=== PATIENT | male | born 1940 | race Caucasian/White ===

== ENCOUNTER 2016-11-17 10:02 | Outpatient (CLI) | payer MEDICARE, OTHER ==
[2016-11-17 11:18] LABS: BASOPHILS % (AUTO) 0.7 %; EOSINOPHILS # (AUTO) 0.1 10^3/uL (0.0-0.7); EOSINOPHILS % (AUTO) 2.3 %; HCT - HEMATOCRIT 42.8 % (42.0-52.0); HEMOGLOBIN A1C 0.48 g/dL; HGB - HEMOGLOBIN 14.9 g/dL (14.0-18.0); LYMPHOCYTES # (AUTO) 1.4 10^3/uL (1.5-3.5); LYMPHOCYTES % (AUTO) 34.2 %; MEAN CORPUSCULAR HEMOGLOBIN 32.2 pg (27.0-31.0); MEAN CORPUSCULAR HGB CONC 34.7 g/dL (32.0-36.0); MEAN CORPUSCULAR VOLUME 92.7 fL (80.0-94.0); MEAN PLATELET VOLUME 8.3 fL (7.4-11.4); MONOCYTES # (AUTO) 0.4 10^3/uL (0.0-1.0); MONOCYTES % (AUTO) 9.1 %; NEUTROPHILS # (AUTO) 2.2 10^3/uL (1.5-6.6); NEUTROPHILS % (AUTO) 53.7 %; RED BLOOD COUNT 4.61 10^6/uL (4.70-6.10); RED CELL DISTRIBUTION WIDTH 12.8 % (12.0-15.0); UNCORRECTED WHITE BLOOD COUNT 4.1 x10^3/uL; WHITE BLOOD COUNT 4.1 x10^3/uL (4.8-10.8)
== END 2016-11-17 10:03 | disposition home or self-care (01) ==
LOC: LAB 10:02
PROVIDERS: ATTEND Internal Medicine
DX: I10 Essential (primary) hypertension (principal); R73.09 Other abnormal glucose; I47.1 Supraventricular tachycardia
CPT/HCPCS: 36415; 80053; 83036; 85025

== ENCOUNTER 2016-12-05 10:07 | Outpatient (CLI) | payer MEDICARE, OTHER ==
[2016-12-05 10:53] LABS: CREATININE 1.2 mg/dL (0.6-1.2)
[2016-12-05] MEDS ORDERED: IOPAMIDOL-300 100 ML VIAL IVP ONE (11:15)
--- NOTE | 2016-12-05 14:52 | CT Report ---
CT CHEST WITH CONTRAST: 12/05/2016 CLINICAL INDICATION: Thoracic aortic aneurysm. TECHNIQUE: Axial CT images of the chest were obtained with 100 mL Isovue-300. COMPARISON: Previous chest CT without contrast 05/31/2014. FINDINGS: Postoperative changes are noted at the gastroesophageal junction and aortic valve. There is no evidence of thoracic aortic aneurysm. The thoracic aorta at the sinus of Valsalva measures 4.0 x 4.0 cm, the sinotubular junction measures 3.9 x 4.1 cm, the ascending aorta at the level of the ma in pulmonary artery measures 4.0 x 4.0 cm. The aortic arch just distal to the takeoff of the left anderson bclavian artery measures 2.7 x 2.7 cm, and the descending thoracic aorta at the level of the main pul monary artery measures 2.8 x 2.8 cm. No hilar or mediastinal lymphadenopathy is present. There is a nodule in the right middle lobe, now measuring 6 x 4 mm (previously 6 x 4 mm). Minimal linear atele ctasis or scarring is present at the bases. No effusion or pneumothorax is present. Osseous structu res demonstrate degenerative changes and changes of previous surgery. Limited evaluation of upper ab dominal structures demonstrates multiple hepatic hypodensities, likely representing cysts, and a larg e cyst in the upper pole of the right kidney. The adrenal glands appear unremarkable. IMPRESSION: NO EVIDENCE OF THORACIC AORTIC ANEURYSM. MEASUREMENTS ABOVE. POSTOPERATIVE CHANGES. In accordance with CT protocol optimization, one or more of the following dose reduction techniques w ere utilized for this exam: automated exposure control, adjustment of mA and/or KV based on patient size, or use of iterative reconstructive technique. JOB #: [id number] EXT JOB #:[id number]
== END 2016-12-05 10:08 | disposition home or self-care (01) ==
LOC: DI 10:07
PROVIDERS: ATTEND Internal Medicine
DX: I71.2 Thoracic aortic aneurysm, without rupture (principal)
CPT/HCPCS: 36415; 71260; 82565; Q9967

== ENCOUNTER 2017-03-07 07:57 | Day surgery (SDC) | payer MEDICARE, OTHER ==
[2017-03-07] MEDS ORDERED: AMPICILLIN 2 GM in SODIUM CHLORIDE 0.9% MINIBAG 100 ML IV ONE (08:00)
[2017-03-07] MEDS ORDERED: LACTATED RINGERS 1,000 ML IV ONE (08:08)
[2017-03-07] MEDS ORDERED: MIDAZOLAM 2 MG/2 ML VIAL IVP ONE (09:26)
[2017-03-07] MEDS ORDERED: fentaNYL 100 MCG/2 ML VIAL IVP ONE (09:26)
--- NOTE | 2017-03-07 10:47 | PROCEDURE REPORT ---
DATE OF PROCEDURE: 03/07/2017 00:00:00 PROCEDURES PERFORMED 1. Esophagogastroduodenoscopy. 2. Colonoscopy. ENDOSCOPIST: Rakel Lucia MD. PRIMARY CARE: Ej Galindo MD. 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 PREMEDICATIONS: Fentanyl 100 mcg, Versed 9 mg IV titration, ampicillin 2 grams IV piggyback. After informed consent was obtained, the patient was placed in the left lateral decubitus position. T he video upper scope was placed into the oropharynx and with the patient's help swallowed into the es ophagus. The esophagus, stomach, and duodenum were carefully examined. On withdrawal, retroflexed vie w of the GE junction was performed. The scope was removed. The patient tolerated the procedure well. The patient was then turned, the colonoscope was substituted, and this was passed to the cecum. On sl ow withdrawal, mucosa was carefully examined. The scope was removed. The patient tolerated the proced ure well. BLOOD LOSS: None. COMPLICATIONS: None. FINDINGS EGD 1. Grade C esophagitis with at least 3 areas of ulceration, one of which was linear and over a centim eter long. 2. 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 Biopsies taken x3. 3. Repaired hiatal hernia with no recurrence. 4. Otherwise negative stomach. 5. Negative duodenal bulb and sweep. Colonoscopy 1. A 6 mm cecal polyp, jumbo biopsied x2 and removed. 2. Otherwise negative colonoscopy to cecum. We will merely await biopsies on the patient. I do not think he will probably need either colonoscopy or upper endoscopy again. He has tried to cut back on his omeprazole and still has some symptoms and he also has clear cut esophagitis. We will discuss perhaps increasing his medications back again. JOB #: [id number] EXT JOB #:[id number]
[2017-03-07 11:02] VITALS: BP 118/68
== END 2017-03-07 07:58 | disposition home or self-care (01) ==
LOC: SDS 07:57
PROVIDERS: ATTEND Internal Medicine Gastroenterology
PROC: 0DB58ZX Excision of Esophagus, Via Natural or Artificial Opening Endoscopic, Diagnostic (ICD-10-PCS; principal; 2017-03-07 09:00)
PROC: 0DBH8ZX Excision of Cecum, Via Natural or Artificial Opening Endoscopic, Diagnostic (ICD-10-PCS; 2017-03-07 09:00)
DX: Z12.11 Encounter for screening for malignant neoplasm of colon (principal); K22.10 Ulcer of esophagus without bleeding; K22.70 Barrett's esophagus without dysplasia; K44.9 Diaphragmatic hernia without obstruction or gangrene; D12.0 Benign neoplasm of cecum; I48.92 Unspecified atrial flutter; I48.91 Unspecified atrial fibrillation; Z79.82 Long term (current) use of aspirin
CPT/HCPCS: 43239; 45380; 88305; J7120

== ENCOUNTER 2017-03-22 10:00 | Outpatient (CLI) | payer MEDICARE, OTHER | END 2017-03-22 10:01 | disposition home or self-care (01) | LOC: LAB.R 10:00 | PROVIDERS: ATTEND Internal Medicine | DX: Z71.89 Other specified counseling (principal) | CPT/HCPCS: 86708 ==

== ENCOUNTER 2017-04-22 10:53 | Emergency (ER) | payer MEDICARE, OTHER ==
[2017-04-22 11:12] LABS: BASOPHILS % (AUTO) 0.8 %; EOSINOPHILS # (AUTO) 0.1 10^3/uL (0.0-0.7); EOSINOPHILS % (AUTO) 1.1 %; HCT - HEMATOCRIT 44.3 % (42.0-52.0); HGB - HEMOGLOBIN 15.2 g/dL (14.0-18.0); LYMPHOCYTES # (AUTO) 1.5 10^3/uL (1.5-3.5); LYMPHOCYTES % (AUTO) 25.8 %; MEAN CORPUSCULAR HEMOGLOBIN 31.6 pg (27.0-31.0); MEAN CORPUSCULAR HGB CONC 34.4 g/dL (32.0-36.0); MEAN PLATELET VOLUME 7.7 fL (7.4-11.4); MONOCYTES # (AUTO) 0.6 10^3/uL (0.0-1.0); MONOCYTES % (AUTO) 10.3 %; NEUTROPHILS # (AUTO) 3.7 10^3/uL (1.5-6.6); RED BLOOD COUNT 4.82 10^6/uL (4.70-6.10); RED CELL DISTRIBUTION WIDTH 12.9 % (12.0-15.0); UNCORRECTED WHITE BLOOD COUNT 5.9 x10^3/uL; WHITE BLOOD COUNT 5.9 x10^3/uL (4.8-10.8)
[2017-04-22 11:24] LABS: ALBUMIN/GLOBULIN RATIO 1.3 (1.0-2.2); BILIRUBIN,TOTAL 0.7 mg/dL (0.2-1.0); CALCIUM 9.1 mg/dL (8.5-10.3); CREATININE 1.3 mg/dL (0.6-1.2); POTASSIUM 4.2 mmol/L (3.5-5.0); TOTAL PROTEIN 6.8 g/dL (6.7-8.2)
--- NOTE | 2017-04-22 11:32 | ED Physician Documentation ---
PD HPI CHEST PAIN - Stated complaint Stated Complaint: CHEST TIGHTNESS,FLUSHED - Chief complaint Chief Complaint: Cardiac - History obtained from History obtained from: Patient - History of Present Illness Timing - onset: How many hours ago (1), Today Timing - onset during: Rest (sitting in [employer], noted onset chest pressure with flush feeling and some nausea/dyspnea. This persisted until just before arrival to ED. Feeling normal at time of my exam. No prior similar episodes.) Timing - duration: Hours (1) Timing - details: Abrupt onset, Now resolved Quality: Pressure, Tightness Location: Substernal, Left chest Radiation: Neck, Left upper extremity, Right upper extremity Improved by: No: Rest Worsened by: No: Inspiration, Movement, Palpation Associated symptoms: Shortness of air, Nausea. No: Palpitations, Cough Similar symptoms before: Has not had sx before Recently seen: Clinic (had Hep A vaccine a week ago in preparation of trip to [facility] in 3 weeks.) Review of Systems Constitutional: denies: Fever, Chills Nose: denies: Rhinorrhea / runny nose, Congestion Throat: denies: Sore throat Cardiac: denies: Palpitations, Pedal edema, Calf pain Respiratory: denies: Dyspnea, Cough, Wheezing GI: denies: Abdominal Pain, Vomiting, Diarrhea : denies: Dysuria, Frequency Skin: denies: Rash, Lesions Neurologic: denies: Focal weakness, Numbness, Near syncope, Syncope Psychiatric: denies: Insomnia Endocrine: denies: Weight loss Immunocompromised: denies: Immunocompromised PD PAST MEDICAL HISTORY - Past Medical History Past Medical History: Yes Cardiovascular: Atrial flutter, Atrial fibrillation, Valve disorder, Other Respiratory: None Endocrine/Autoimmune: None GI: GERD, Ulcers, Pancreatitis, Other : Other HEENT: None Psych: None Musculoskeletal: None Derm: Other - Past Surgical History Past Surgical History: Yes General: Cholecystectomy, Colonoscopy, EGD, Other Cardiovascular: Valve replacement HEENT: Cataracts - Present Medications Home Medications: Ambulatory Orders Medication Instructions Recorded Confirmed Aspirin Chewable [St Christoph 81 mg PO DAILY 10/30/13 04/22/17 Aspirin] Metoprolol Succinate [Toprol Xl] 25 mg PO DAILY 10/30/13 04/22/17 Omeprazole 20 mg PO DAILY 10/30/13 04/22/17 Sumatriptan [Imitrex] 50 mg PO ONCE PRN 10/30/13 04/22/17 Butalbital/Aspirin/Caffeine 1 each PO ONCE 07/13/14 04/22/17 [Fiorinal 50-325-40 mg Capsule] - Allergies Allergies/Adverse Reactions: Allergies Allergy/AdvReac Type Severity Reaction Status Date / Time iobenguane iodine-131 AdvReac Mild Itching Verified 07/13/14 14:41 - Social History Does the pt smoke?: No Smoking Status: Never smoker Does the pt drink ETOH?: Yes Does the pt have substance abuse?: No - Immunizations Immunizations are current?: Yes PD ED PE NORMAL - Vitals Vital signs reviewed: Yes - General General: Alert and oriented X 3, No acute distress, Well developed/nourished - HEENT HEENT: Pharynx benign - Neck Neck: Supple, no meningeal sign, No adenopathy - Cardiac Cardiac: RRR, No murmur - Respiratory Respiratory: Clear bilaterally - Abdomen Abdomen: Soft, Non tender - Back Back: No CVA TTP - Derm Derm: Normal color, Warm and dry - Extremities Extremities: No deformity, No tenderness to palpate, Normal ROM s pain, No edema , No calf tenderness / cord - Neuro Neuro: Alert and oriented X 3, No motor deficit, Normal speech - Psych Psych: Normal mood, Normal affect Results - Vitals Vitals: Vital Signs - 24 hr 04/22/17 04/22/17 04/22/17 10:57 11:50 12:53 Temperature 36.3 C L 36.2 C L 36.9 C Heart Rate 64 59 L 56 L Respiratory 18 16 16 Rate Blood Pressure 191/97 H 138/82 H 124/78 O2 Saturation 99 97 98 04/22/17 14:16 Temperature 36.5 C Heart Rate 55 L Respiratory 18 Rate Blood Pressure 121/73 O2 Saturation 95 Oxygen O2 Source Room air - EKG (time done) 10:58 Rhythm: NSR (64) Intervals: RBBB QRS: Normal Ischemia: Normal ST segments. No: ST elevation c/w ischemia, ST depression - Labs Labs: Laboratory Tests 04/22/17 04/22/17 04/22/17 11:04 11:06 11:06 WBC 5.9 RBC 4.82 Hgb 15.2 Hct 44.3 MCV 92.0 MCH 31.6 H MCHC 34.4 RDW 12.9 Plt Count 138 MPV 7.7 Neut # 3.7 Lymph # 1.5 Luce # 0.6 Eos # 0.1 Baso # 0.0 Absolute Nucleated RBC 0.00 Nucleated RBC % 0.0 Sodium 137 Potassium 4.2 Chloride 106 Carbon Dioxide 25 Anion Gap 6.0 BUN 22 H Creatinine 1.3 H Estimated GFR (MDRD) 54 L Glucose 81 POC Whole Bld Glucose 83 Calcium 9.1 Total Bilirubin 0.7 AST 18 ALT 14 Alkaline Phosphatase 46 Troponin I Total Protein 6.8 Albumin 3.8 Globulin 3.0 Albumin/Globulin Ratio 1.3 Lipase 24 04/22/17 04/22/17 11:06 13:47 WBC RBC Hgb Hct MCV MCH MCHC RDW Plt Count MPV Neut # Lymph # Luce # Eos # Baso # Absolute Nucleated RBC Nucleated RBC % Sodium Potassium Chloride Carbon Dioxide Anion Gap BUN Creatinine Estimated GFR (MDRD) Glucose POC Whole Bld Glucose Calcium Total Bilirubin AST ALT Alkaline Phosphatase Troponin I < 0.04 < 0.04 Total Protein Albumin Globulin Albumin/Globulin Ratio Lipase - Rads (name of study) chest Radiology: Prelim report reviewed, EMP read contemporaneously (normal appearance. ) PD MEDICAL DECISION MAKING - ED course Complexity details: reviewed results, considered differential, d/w patient, d/w help desk consultant (Hospitalist - Nuc Med not available tomorrow, so cannot get stress test. So can get repeat troponins to eval for [facility] but would need to get stress testing done through [facility] (Dr. Galindo). ) Departure - Departure Disposition: 01 Home, Self Care Clinical Impression: Chest pain Qualifiers: Chest pain type: precordial pain Qualified Code(s): R07.2 - Precordial pain Clinical Impression: (Ruled Out): Myocardial infarction Condition: Stable Record reviewed to determine appropriate education?: Yes Instructions: ED Chest Pain Atypical Unkn Cause Follow-Up: Ej Galindo MD [Primary Care Provider] - Comments: Continue usual medications including aspirin daily. At this point there is no signs of acute heart attack. The consideration would be potential for angina in that would be assessed by provocative testing such as a nuclear stress test. Follow-up with Dr. Tian in the next couple of days. Presumably he would want to do a test like that before you go on your trip. Return if recurring chest pain episodes. Discharge Date/Time: 04/22/17 14:38
--- NOTE | 2017-04-22 12:01 | XRAY Preliminary Report ---
Exam: XR CHEST 1 VIEW IMPRESSION: 1. Lungs clear. Heart size normal. [facility] SITE ID: [id number]
--- NOTE | 2017-04-22 12:03 | XRAY Report ---
EXAM: CHEST RADIOGRAPHY EXAM DATE: 04/22/2017 11:26 AM. CLINICAL HISTORY: Chest pain. COMPARISON: CT 12/05/2016, x-ray 07/13/2014. TECHNIQUE: 1 view. FINDINGS: Lungs/Pleura: No focal opacities evident. No pleural effusion. No pneumothorax. Mediastinum: Previous median sternotomy. Heart size normal. Aorta mildly tortuous. Other: None. IMPRESSION: 1. Lungs clear. Heart size normal. [facility] Referring Provider Line: [phone] SITE ID: [id number]
[2017-04-22 14:16] VITALS: BP 121/73
== END 2017-04-22 14:38 | disposition home or self-care (01) ==
LOC: EDSEX → ED 10:53
DX: R07.2 Precordial pain (principal); I45.10 Unspecified right bundle-branch block; Z95.2 Presence of prosthetic heart valve; Z79.82 Long term (current) use of aspirin
CPT/HCPCS: 36415; 71010; 80053; 83690; 84484; 85025; 93005; 99284; 99285

== ENCOUNTER 2017-05-09 11:13 | Outpatient (CLI) | payer MEDICARE, OTHER ==
[2017-05-09] MEDS ORDERED: ADENOSINE 90 MG/30 ML VIAL IVP ONE (12:45)
--- NOTE | 2017-05-09 16:28 | Nuclear Medicine Prelim Report ---
Exam: NM MYOCARDIAL PERFUSION STR/RST IMPRESSION: 1. No convincing significant fixed or reversible perfusion defects. 2. Left ventricular ejection fraction of 68%. 3. Normal segmental and global wall motion. 4. Normal left ventricular cavity size, no change with stress. JATIN The call report notification system was initiated by Dr. Julian Paniagua at 16:14 hrs on 05/09/17. The above findings were discussed with Dr. Galindo by Dr. Julian Paniagua at 16:27 hrs on 05/09/17. SITE ID: [id number]
--- NOTE | 2017-05-09 16:31 | Nuclear Medicine Report ---
EXAM: SINGLE-ISOTOPE PHARMACOLOGICAL STRESS TEST WITH ADENOSINE. SINGLE-ISOTOPE AND ONE-DAY REST/STRESS ERVIN CARDIAL PERFUSION SCANS WITH TOMOGRAPHIC IMAGING, QUANTITATIVE ANALYSIS, WALL MOTION ANALYSIS AND OTIS CULATION OF EJECTION FRACTION. EXAM DATE: 05/09/2017 11:55 AM. CLINICAL HISTORY: PRECORDIAL CHEST PAIN. COMPARISON: None available. TECHNIQUE: AFter the intravenous administration of 10.7 mCi of Tc-99m sestamibi, a rest myocardial perfusion sca n was done with tomography. Motion correction was applied when appropriate. A pharmacological stress was performed with the intravenous infusion of 83 mg adenosine per protocol. According to protocol, 41 mCi of Tc-99m sestamibi was injected for stress myocardial perfusion scan. Motion correction was applied when appropriate. Gated tomographic images were obtained for wall motion analysis and computation of left ventricular e jection fraction. FINDINGS: There is a small, mild, distal anteroseptal fixed defect likely representing breast attenua tion artifact. No convincing fixed or reversible perfusion defects. Wall motion analysis demonstrates no focal wall motion abnormality The left ventricular end-diastolic volume is 117 cc. The left ventricular end-systolic volume is 37 c c. The left ventricular ejection fraction is calculated to be 68%. IMPRESSION: 1. No convincing significant fixed or reversible perfusion defects. 2. Left ventricular ejection fraction of 68%. 3. Normal segmental and global wall motion. 4. Normal left ventricular cavity size, no change with stress. [facility] The call report notification system was initiated by Dr. Julian Paniagua at 16:14 hrs on 05/09/17. The above findings were discussed with Dr. Galindo by Dr. Julian Paniagua at 16:27 hrs on 05/09/17. Referring Provider Line: [phone] SITE ID: [id number]
--- NOTE | 2017-05-10 16:34 | CARDIAC PROCEDURE NOTE ---
DATE OF SERVICE: 05/09/2017 00:00:00 PROCEDURE: Adenosine infusion for sestamibi myocardial imaging. INDICATIONS: a 76-year-old male with atypical chest symptoms who is anticipating traveling for an ext ensive period of time to 8000 [place] elevation. DESCRIPTION OF PROCEDURE: The patient received adenosine and sestamibi per nuclear medicine protocol. He experienced some very vague chest tightness, slight shortness of breath, and slight flushing sens ation. His cardiac rhythm remained in sinus. He has an underlying right bundle branch block pattern. During the infusion, he had some subtle ST segment depressions in leads V2 and V3 and these resolved immediately upon termination of the adenosine infusion. IMPRESSION: Unremarkable adenosine infusion performed for sestamibi myocardial imaging. See nuclear m edicine report for details. JOB #: [id number] EXT JOB #:[id number]
[2017-05-10 17:46] VITALS: BP 148/86
== END 2017-05-09 11:14 | disposition home or self-care (01) ==
LOC: DI 11:13
PROVIDERS: ATTEND Internal Medicine
DX: R07.2 Precordial pain (principal)
CPT/HCPCS: 78452; 93017; A9500; J0153

== ENCOUNTER 2017-12-14 10:59 | Outpatient (CLI) | payer MEDICARE, OTHER ==
[2017-12-14 11:21] LABS: BASOPHILS % (AUTO) 0.7 %; EOSINOPHILS # (AUTO) 0.1 10^3/uL (0.0-0.7); EOSINOPHILS % (AUTO) 1.5 %; HGB - HEMOGLOBIN 15.2 g/dL (14.0-18.0); LYMPHOCYTES # (AUTO) 1.3 10^3/uL (1.5-3.5); LYMPHOCYTES % (AUTO) 30.8 %; MEAN CORPUSCULAR HEMOGLOBIN 32.3 pg (27.0-31.0); MEAN CORPUSCULAR HGB CONC 34.1 g/dL (32.0-36.0); MEAN CORPUSCULAR VOLUME 94.7 fL (80.0-94.0); MEAN PLATELET VOLUME 7.5 fL (7.4-11.4); MONOCYTES # (AUTO) 0.4 10^3/uL (0.0-1.0); MONOCYTES % (AUTO) 9.6 %; NEUTROPHILS # (AUTO) 2.4 10^3/uL (1.5-6.6); NEUTROPHILS % (AUTO) 57.4 %; PLT - PLATELET COUNT 132 10^3/uL (130-450); RED BLOOD COUNT 4.71 10^6/uL (4.70-6.10); RED CELL DISTRIBUTION WIDTH 13.2 % (12.0-15.0); WHITE BLOOD COUNT 4.2 x10^3/uL (4.8-10.8)
[2017-12-14 11:42] LABS: ALBUMIN 3.8 g/dL (3.2-5.5); ALBUMIN/GLOBULIN RATIO 1.2 (1.0-2.2); ALKALINE PHOSPHATASE 49 IU/L (42-121); ALT ALANINE AMINOTRANSFERASE 12 IU/L (10-60); AST ASPARTATE AMINOTRANSFERASE 17 IU/L (10-42); BILIRUBIN,TOTAL 1.2 mg/dL (0.2-1.0); BUN - BLOOD UREA NITROGEN 21 mg/dL (6-20); CALCIUM 8.8 mg/dL (8.5-10.3); CARBON DIOXIDE - CO2 25 mmol/L (21-32); CHLORIDE 107 mmol/L (101-111); CHOL/HDL RATIO 3.2 (<5.0); CHOLESTEROL 180 mg/dL; CREATININE 1.2 mg/dL (0.6-1.2); GFR - MDRD 59 (>89); GLUCOSE 100 mg/dL (70-100); HDL CHOLESTEROL 57 mg/dL; LDL CHOLESTEROL,CALCULATED 103 mg/dL; LDL/HDL RATIO 1.8 (<3.6); SODIUM 138 mmol/L (135-145); TOTAL PROTEIN 6.9 g/dL (6.7-8.2); VLDL CHOLESTEROL 20 mg/dL
== END 2017-12-14 11:00 | disposition home or self-care (01) ==
LOC: LAB 10:59
PROVIDERS: ATTEND Internal Medicine
DX: I71.2 Thoracic aortic aneurysm, without rupture (principal); K22.70 Barrett's esophagus without dysplasia; I10 Essential (primary) hypertension; Z79.899 Other long term (current) drug therapy
CPT/HCPCS: 36415; 80053; 80061; 83721; 85025

== ENCOUNTER 2017-12-18 12:13 | Outpatient (CLI) | payer MEDICARE, OTHER | END 2017-12-18 12:14 | disposition home or self-care (01) | LOC: LAB 12:13 | PROVIDERS: ATTEND Internal Medicine | DX: I38 Endocarditis, valve unspecified (principal) | CPT/HCPCS: 36415; 87040 ==

== ENCOUNTER 2018-12-24 11:04 | Outpatient (CLI) | payer MEDICARE, OTHER ==
[2018-12-24 18:09] LABS: BILIRUBIN,URINE NEGATIVE (NEGATIVE); GLUCOSE, URINE (UA) NEGATIVE (NEGATIVE); KETONES,URINE (UA) NEGATIVE (NEGATIVE); LEUKOCYTE ESTERASE, URINE NEGATIVE (NEGATIVE); NITRITE,URINE NEGATIVE (NEGATIVE); OCCULT BLOOD,URINE NEGATIVE (NEGATIVE); PH,URINE 5.5 PH (5.0-7.5); PROTEIN,URINE NEGATIVE (NEGATIVE); UROBILINOGEN,URINE 0.2 (NORMAL) E.U./dL (NORMAL)
[2018-12-24 18:11] LABS: CLARITY,URINE CLEAR (CLEAR)
== END 2018-12-24 23:59 | disposition home or self-care (01) ==
LOC: LAB.R 11:04
PROVIDERS: ATTEND Family Medicine
DX: N41.1 Chronic prostatitis (principal)
CPT/HCPCS: 81001; 81003; 87086

== ENCOUNTER 2018-12-24 11:32 | Outpatient (CLI) | payer MEDICARE, OTHER ==
[2018-12-24 12:41] LABS: BASOPHILS % (AUTO) 0.5 %; LYMPHOCYTES # (AUTO) 1.3 10^3/uL (1.5-3.5); LYMPHOCYTES % (AUTO) 30.3 %; MEAN CORPUSCULAR HEMOGLOBIN 31.2 pg (27.0-31.0); MEAN CORPUSCULAR HGB CONC 32.8 g/dL (32.0-36.0); MEAN CORPUSCULAR VOLUME 95.2 fL (80.0-94.0); MEAN PLATELET VOLUME 9.7 fL (7.4-11.4); MONOCYTES # (AUTO) 0.3 10^3/uL (0.0-1.0); MONOCYTES % (AUTO) 7.9 %; NEUTROPHILS # (AUTO) 2.5 10^3/uL (1.5-6.6); NEUTROPHILS % (AUTO) 60.1 %; PLT - PLATELET COUNT 136 10^3/uL (130-450); RED BLOOD COUNT 4.81 10^6/uL (4.70-6.10); RED CELL DISTRIBUTION WIDTH 12.4 % (12.0-15.0); WHITE BLOOD COUNT 4.2 x10^3/uL (4.8-10.8)
[2018-12-24 12:44] LABS: ALBUMIN 3.8 g/dL (3.2-5.5); ALBUMIN/GLOBULIN RATIO 1.3 (1.0-2.2); BILIRUBIN,TOTAL 0.9 mg/dL (0.2-1.0); CALCIUM 9.2 mg/dL (8.5-10.3); CREATININE 1.1 mg/dL (0.6-1.2); TOTAL PROTEIN 6.7 g/dL (6.7-8.2)
== END 2018-12-24 11:33 | disposition home or self-care (01) ==
LOC: LAB 11:32
PROVIDERS: ATTEND Family Medicine
DX: G43.109 Migraine with aura, not intractable, without status migrainosus (principal); K43.2 Incisional hernia without obstruction or gangrene; N40.1 Benign prostatic hyperplasia with lower urinary tract symptoms; N13.8 Other obstructive and reflux uropathy; I38 Endocarditis, valve unspecified; Z79.899 Other long term (current) drug therapy
CPT/HCPCS: 36415; 80053; 84153; 84443; 85025

== ENCOUNTER 2020-02-27 09:35 | Outpatient (CLI) | payer MEDICARE, OTHER ==
[2020-02-27 10:02] LABS: BILIRUBIN,URINE NEGATIVE (NEGATIVE); GLUCOSE, URINE (UA) NEGATIVE (NEGATIVE); KETONES,URINE (UA) NEGATIVE (NEGATIVE); LEUKOCYTE ESTERASE, URINE SMALL (NEGATIVE); NITRITE,URINE NEGATIVE (NEGATIVE); OCCULT BLOOD,URINE MODERATE (NEGATIVE); PROTEIN,URINE TRACE mg/dL (NEGATIVE); UROBILINOGEN,URINE 0.2 (NORMAL) E.U./dL (NORMAL)
[2020-02-27 10:06] LABS: CLARITY,URINE HAZY (CLEAR)
[2020-02-27 10:07] LABS: BASOPHILS % (AUTO) 0.5 %; EOSINOPHILS # (AUTO) 0.1 10^3/uL (0.0-0.7); EOSINOPHILS % (AUTO) 2.4 %; LYMPHOCYTES # (AUTO) 1.4 10^3/uL (1.5-3.5); LYMPHOCYTES % (AUTO) 37.3 %; MEAN CORPUSCULAR HEMOGLOBIN 31.5 pg (27.0-31.0); MEAN CORPUSCULAR HGB CONC 33.8 g/dL (32.0-36.0); MEAN PLATELET VOLUME 9.7 fL (7.4-11.4); MONOCYTES # (AUTO) 0.4 10^3/uL (0.0-1.0); NEUTROPHILS # (AUTO) 1.8 10^3/uL (1.5-6.6); NEUTROPHILS % (AUTO) 49.8 %; PLT - PLATELET COUNT 126 10^3/uL (130-450); RED BLOOD COUNT 4.45 10^6/uL (4.70-6.10); WHITE BLOOD COUNT 3.7 x10^3/uL (4.8-10.8)
[2020-02-27 10:20] LABS: BACTERIA,URINE Rare /HPF (None Seen); RBC,URINE 0-5 /HPF (0-5); SQUAMOUS EPITHELIAL CELL,UR NONE SEEN (<= Few)
[2020-02-27 10:21] LABS: MUCUS,URINE Moderate Strands
[2020-02-27 10:31] LABS: ALBUMIN 3.7 g/dL (3.2-5.5); ALBUMIN/GLOBULIN RATIO 1.2 (1.0-2.2); ALKALINE PHOSPHATASE 52 IU/L (42-121); ALT ALANINE AMINOTRANSFERASE 12 IU/L (10-60); AST ASPARTATE AMINOTRANSFERASE 14 IU/L (10-42); BILIRUBIN,TOTAL 1.1 mg/dL (0.2-1.0); BUN - BLOOD UREA NITROGEN 23 mg/dL (6-20); CALCIUM 9.3 mg/dL (8.5-10.3); CARBON DIOXIDE - CO2 24 mmol/L (21-32); CHLORIDE 107 mmol/L (101-111); CHOLESTEROL 166 mg/dL; CREATININE 1.3 mg/dL (0.6-1.2); GLUCOSE 106 mg/dL (70-100); HDL CHOLESTEROL 56 mg/dL; LDL CHOLESTEROL,CALCULATED 96 mg/dL; LDL/HDL RATIO 1.7 (<3.6); SODIUM 140 mmol/L (135-145); TOTAL PROTEIN 6.8 g/dL (6.7-8.2); VLDL CHOLESTEROL 14 mg/dL
[2020-02-27 11:01] LABS: CRP - C-REACTIVE PROTEIN < 1.0 mg/dL (0-1.0)
== END 2020-02-27 09:36 | disposition home or self-care (01) ==
LOC: LAB 09:35
PROVIDERS: ATTEND Family Medicine
DX: M81.0 Age-related osteoporosis without current pathological fracture (principal); I45.10 Unspecified right bundle-branch block; I10 Essential (primary) hypertension; D64.9 Anemia, unspecified; N40.1 Benign prostatic hyperplasia with lower urinary tract symptoms; G47.33 Obstructive sleep apnea (adult) (pediatric); I38 Endocarditis, valve unspecified; R32 Unspecified urinary incontinence
CPT/HCPCS: 36415; 80053; 80061; 81001; 83721; 84443; 85025; 85651; 86140

== ENCOUNTER 2020-03-12 09:34 | Outpatient (CLI) | payer MEDICARE, OTHER ==
--- NOTE | 2020-03-12 13:55 | DEXA Report ---
PROCEDURE: Dexa Spine and/or Hip INDICATIONS: OSTEOPOROSIS TECHNIQUE: Dual energy x-ray absorptiometry (DXA) was performed on a Prestigos System. Regions measur ed are the AP Spine, femoral neck, and if needed forearm. COMPARISON: None. FINDINGS: Lumbar Spine: Bone Mineral Density 0.959 g/cm/cm,T score -2.2, significant osteopenia/borderline osteoporosis. Left Hip: Bone Mineral Density 0.730 g/cm/cm,T score -2.6, mild osteoporosis Left Femoral Neck: Bone Mineral Density 0.791 g/cm/cm, T score -2.1, moderate to severe osteopenia. (T score greater or equal to -1.0: NORMAL) (T score from -1.1 to -2.4: OSTEOPENIA) (T score less than or equal to -2.5 to: OSTEOPOROSIS) Impression: 1. Osteoporosis within the left hip as well as significant osteopenia in the lumbar spine and left fe moral neck. Patients with diagnosis of osteoporosis or osteopenia should have regular bone mineral density assess ment. For those eligible for Medicare, routine testing is allowed once every 2 years. Testing frequ ency can be increased for patients who have rapidly progressing disease or for those who are receivin g medical therapy to restore bone mass. Reviewed by: Adriana Ziegler MD on 03/12/2020 1:54 PM PDT Approved by: Adriana Ziegler MD on 03/12/2020 1:54 PM PDT Station ID: [id number]
== END 2020-03-12 09:35 | disposition home or self-care (01) ==
LOC: DI 09:34
PROVIDERS: ATTEND Family Medicine
DX: M81.0 Age-related osteoporosis without current pathological fracture (principal)
CPT/HCPCS: 77080

== ENCOUNTER 2020-06-11 08:11 | Outpatient (CLI) | payer MEDICARE, OTHER | END 2020-06-11 08:12 | disposition critical access hospital (66) | LOC: EMS 08:11 | PROVIDERS: ATTEND Surgery | DX: R42 Dizziness and giddiness (principal); R61 Generalized hyperhidrosis | CPT/HCPCS: A0425; A0427 ==

== ENCOUNTER 2020-06-11 08:25 | Emergency (ER) | payer MEDICARE, OTHER ==
--- NOTE | 2020-06-11 08:58 | ED Physician Documentation ---
PD HPI SYNCOPE - Stated complaint Stated Complaint: FALL - Chief complaint Chief Complaint: Cardiac - History obtained from History obtained from: Patient - History of Present Illness Witnessed: Unwitnessed Timing - onset: Today Duration: Minutes Preceding symptoms: Light headed, Other (he went to mailbox as usual each morning, and on the way back, started to feel lightheaded and off balance. Fell to the ground and struck left chest/abd. Denies striking head. Albin weak and unable to stand. Not vertigo per se. Crawled hands and knees into house. No focal weakness. called EMS.). No: Chest pain, Abdominal pain, Generalized weakness Associated symptoms: No: Chest pain, Dyspnea, Nausea / vomiting, Abdominal pain Contributing factors: No: Recent med change, Decreased PO intake, Just stood up, Exertion (just walked to the mailbox, which is daily ritual for him without problems.) Similar symptoms before: Has not had sx before (prior episodes of vertigo/dizziness which have been labeled TIAs. Did not have those symptoms now. Feeling of general weakness today.) Recently seen: Not recently seen Review of Systems Constitutional: denies: Fever, Chills Nose: denies: Rhinorrhea / runny nose, Congestion Throat: denies: Sore throat Cardiac: denies: Chest pain / pressure Respiratory: denies: Dyspnea, Cough GI: denies: Abdominal Pain, Nausea, Vomiting, Diarrhea Neurologic: reports: Generalized weakness. denies: Focal weakness, Numbness, Syncope, Altered mental status PD PAST MEDICAL HISTORY - Past Medical History Cardiovascular: Hypertension, Atrial flutter, Atrial fibrillation, Valve disorder, Other Respiratory: None Endocrine/Autoimmune: None GI: GERD, Ulcers, Pancreatitis, Other : Other HEENT: None Psych: None Musculoskeletal: None, Osteoarthritis Derm: Other - Past Surgical History Past Surgical History: Yes General: Cholecystectomy, Hiatal hernia repair, Colonoscopy, EGD, Other Cardiovascular: Valve replacement HEENT: Cataracts - Present Medications Home Medications: Ambulatory Orders Medication Instructions Recorded Confirmed Aspirin Chewable [St Christoph 81 mg PO DAILY 10/30/13 04/22/17 Aspirin] Omeprazole 20 mg PO DAILY 10/30/13 04/22/17 SUMAtriptan [Imitrex] 50 mg PO ONCE PRN 10/30/13 04/22/17 Butalbital/Aspirin/Caffeine 1 each PO ONCE 07/13/14 04/22/17 [Fiorinal 50-325-40 mg Capsule] Finasteride [Proscar] 5 mg ORAL 06/11/20 Lactobacillus Acidophilus 1 each PO 06/11/20 06/11/20 [Probiotic Acidophilus] - Allergies Allergies/Adverse Reactions: Allergies Allergy/AdvReac Type Severity Reaction Status Date / Time iobenguane iodine-131 AdvReac Mild Itching Verified 06/11/20 08:46 - Social History Does the pt smoke?: No Smoking Status: Never smoker Does the pt drink ETOH?: Yes Does the pt have substance abuse?: No - Immunizations Immunizations are current?: Yes PD ED PE NORMAL - Vitals Vital signs reviewed: Yes - General General: Alert and oriented X 3, No acute distress, Well developed/nourished - Neck Neck: Supple, no meningeal sign, No adenopathy - Cardiac Cardiac: RRR (regular with frequent PVCs (trigeminy at times). ), No murmur - Respiratory Respiratory: Clear bilaterally - Abdomen Abdomen: Soft, Non distended, Other (left lower chest pain and upper left abd with local tenderness without obvious deformity. ) - Back Back: No CVA TTP, No spinal TTP - Derm Derm: Normal color, Warm and dry - Extremities Extremities: Normal ROM s pain, No edema, No calf tenderness / cord - Neuro Neuro: Alert and oriented X 3, No motor deficit, Normal speech Results - Vitals Vitals: Vital Signs - 24 hr 06/11/20 06/11/20 06/11/20 08:29 09:24 10:37 Temperature 36.7 C 36.8 C Heart Rate 62 57 L 55 L Respiratory 18 16 20 Rate Blood Pressure 130/118 H 129/81 H 157/77 H O2 Saturation 99 98 100 06/11/20 06/11/20 06/11/20 11:10 11:49 12:28 Temperature 37.0 C Heart Rate 54 L 53 L 54 L Respiratory 16 19 18 Rate Blood Pressure 141/94 H 138/86 H 146/87 H O2 Saturation 99 93 98 06/11/20 12:30 Temperature Heart Rate Respiratory 16 Rate Blood Pressure O2 Saturation 95 Oxygen O2 Source Room air - Labs Labs: Laboratory Tests 06/11/20 06/11/20 06/11/20 08:20 08:20 08:56 WBC 4.1 L RBC 4.34 L Hgb 13.9 L Hct 41.1 L MCV 94.7 H MCH 32.0 H MCHC 33.8 RDW 12.0 Plt Count 133 MPV 9.9 Neut # (Auto) 2.6 Lymph # (Auto) 1.0 L [place] # (Auto) 0.4 Eos # (Auto) 0.1 Baso # (Auto) 0.0 Absolute Nucleated RBC 0.00 Nucleated RBC % 0.0 Sodium 138 Potassium 4.0 Chloride 108 Carbon Dioxide 23 Anion Gap 7.0 BUN 24 H Creatinine 1.2 Estimated GFR (MDRD) 59 L Glucose 102 H Calcium 8.8 Magnesium 2.1 Total Bilirubin 0.9 AST 15 ALT 12 Alkaline Phosphatase 54 Troponin I High Sens 14.0 Total Protein 6.2 L Albumin 3.5 Globulin 2.7 Albumin/Globulin Ratio 1.3 - Rads (name of study) chest/abd CT Radiology: Prelim report reviewed (no fractures nor organ injury. ), See rad report head CT Radiology: Prelim report reviewed (no ICH nor acute process.), See rad report PD MEDICAL DECISION MAKING - ED course Complexity details: re-evaluated patient, considered differential (had weakness generally and fell to ground. crawled into house (no focal weakness). Not vertigo per se. will get imaging head/ trunk to eval for injury. Labs to check. ECG adn monitor showing PVCs but otherwise NSR. BP okay. ), d/w patient Departure - Departure Disposition: 01 Home, Self Care Clinical Impression: General weakness Fall Qualifiers: Encounter type: initial encounter Qualified Code(s): W19.XXXA - Unspecified fall, initial encounter Contusion of left chest wall Qualifiers: Encounter type: initial encounter Qualified Code(s): S20.212A - Contusion of left front wall of thorax, initial encounter Condition: Stable Record reviewed to determine appropriate education?: Yes Instructions: ED Contusion Chest Wall Follow-Up: Paddy Vazquez MD [Primary Care Provider] - Comments: Your scans are good without any signs of rib fractures nor organ injury. You will be sore in your chest wall presumably for several days to a week. Use Tylenol every 4 hours if needed for pains. Your basic blood tests and EKG and vital signs are good. No obvious significant abnormality at this time. Unclear the cause of your symptoms earlier. Stay well-hydrated and have light activity for the next day or 2. Follow-up if any persistent lightheadedness or feeling off balance. Continue your current usual medicines. Discharge Date/Time: 06/11/20 12:50
[2020-06-11 09:16] LABS: BASOPHILS % (AUTO) 0.7 %; EOSINOPHILS # (AUTO) 0.1 10^3/uL (0.0-0.7); EOSINOPHILS % (AUTO) 1.5 %; HGB - HEMOGLOBIN 13.9 g/dL (14.0-18.0); LYMPHOCYTES % (AUTO) 24.9 %; MEAN CORPUSCULAR HGB CONC 33.8 g/dL (32.0-36.0); MEAN CORPUSCULAR VOLUME 94.7 fL (80.0-94.0); MEAN PLATELET VOLUME 9.9 fL (7.4-11.4); MONOCYTES # (AUTO) 0.4 10^3/uL (0.0-1.0); NEUTROPHILS # (AUTO) 2.6 10^3/uL (1.5-6.6); NEUTROPHILS % (AUTO) 63.7 %; PLT - PLATELET COUNT 133 10^3/uL (130-450); RED BLOOD COUNT 4.34 10^6/uL (4.70-6.10); WHITE BLOOD COUNT 4.1 x10^3/uL (4.8-10.8)
[2020-06-11] MEDS ORDERED: IOVERSOL 320 100 ML VIAL IVP ONE ×2 (09:33→15:59)
[2020-06-11 09:42] LABS: ALBUMIN 3.5 g/dL (3.2-5.5); ALBUMIN/GLOBULIN RATIO 1.3 (1.0-2.2); BILIRUBIN,TOTAL 0.9 mg/dL (0.2-1.0); CALCIUM 8.8 mg/dL (8.5-10.3); CREATININE 1.2 mg/dL (0.6-1.2); MAGNESIUM 2.1 mg/dL (1.7-2.8); TOTAL PROTEIN 6.2 g/dL (6.7-8.2)
--- NOTE | 2020-06-11 10:46 | CT Report ---
PROCEDURE: HEAD WO INDICATIONS: fall, feeling dizzy TECHNIQUE: Noncontrast 4.5 mm thick angled axial sections acquired from the foramen magnum to the vertex. For r adiation dose reduction, the following was used: automated exposure control, adjustment of mA and/or kV according to patient size. COMPARISON: Report for CT scan head 10/26/2010 (images not available time of interpretation) FINDINGS: Image quality: Excellent. CSF spaces: Basal cisterns are patent. Probable right frontal convexity extra-axial fluid collection s likely represent arachnoid cysts which by report are not significant changed compared to 10/26/2010. Ventricles are symmetric in size and shape. Brain: No intracranial bleeds or masses. There is cerebral volume loss for age, with resultant vent ricular and sulcal prominence. There are periventricular and deep white matter chronic small vessel ischemic changes. There is intracranial internal carotid artery and vertebral artery atherosclerosis . Skull and face: Calvarium and visualized facial bones appear intact, without suspicious lesions. Sinuses: Visualized sinuses and mastoids are clear. IMPRESSION: No acute intracranial disease process. Reviewed by: Sue Tolliver MD, PhD on 06/11/2020 10:45 AM [facility] Approved by: Sue Tolliver MD, PhD on 06/11/2020 10:45 AM [facility] Station ID: [id number]
--- NOTE | 2020-06-11 10:47 | CT Report ---
PROCEDURE: CHEST W INDICATIONS: fall, with left upper abd/lower chest pain CONTRAST: IV CONTRAST: Optiray 320 ml: 100 PO CONTRAST: *NO PO CONTRAST TECHNIQUE: After the administration of intravenous contrast, 5 mm thick sections acquired from the pulmonary api sabi to the posterior costophrenic angles. 7 mm thick coronal MIP reformats were acquired. For radia tion dose reduction, the following was used: automated exposure control, adjustment of mA and/or kV according to patient size. COMPARISON: 12/05/2016. FINDINGS: Image quality: Excellent. Lungs and pleura: Platelike atelectasis in posterior and medial aspect of bilateral lower lobes near the lung bases are seen. Atelectasis/scarring in anterior medial aspect of left lingular segment is a lso noted. 7 x 4 mm solid nodule is noted in anterior aspect of right middle lobe near right lung bas e series 3 image 176. This is unchanged from 12/06/2016 study and most consistent with benign nodule. N o pleural effusions or pneumothorax. Central and peripheral airways are patent and normal in caliber . Mediastinum: Median sternotomy wires are again seen. Heart size is enlarged. No pericardial effusion . No mediastinal or hilar adenopathy by size criteria. Thoracic aorta and central pulmonary arterie s are normal in size. Esophagus is normal in caliber. No hiatal hernia. Bones and chest wall: No suspicious bony lesions. No vertebral body compression fractures. No axil kesha or supraclavicular adenopathy by size criteria. Thyroid gland is within normal limits. Abdomen: Visualized upper abdominal solid organs appear normal. Upper abdominal bowel loops are nor mal in caliber. Multiple well-circumscribed hypodensities are noted scattered in the liver parenchym a likely represent hepatic cysts. Bilateral renal cysts are seen. IMPRESSION: 1. No gross acute rib fracture. No compression fracture or spondylolisthesis is seen in thoracic spin e. 2. Dependent atelectasis and scarring seen scattered in bilateral lower lung fontaine. No pleural effus ion or pneumothorax. Airway is patent. 3. Stable 7 x 4 mm right middle lobe nodule consistent with benign process. 4. No mediastinal hematoma. Cardiomegaly. No mediastinal or hilar lymphadenopathy. Please refer to CT of abdomen and pelvis study for abdominal findings. Reviewed by: Devyn Mendoza MD on 06/11/2020 9:46 AM [facility] Approved by: Devyn Mendoza MD on 06/11/2020 9:46 AM [facility] Station ID: [id number]
--- NOTE | 2020-06-11 11:00 | CT Report ---
PROCEDURE: Abdomen/Pelvis W INDICATIONS: fall, with left upper abd/lower chest pain CONTRAST: IV CONTRAST: Optiray 320 ml: 100 PO CONTRAST: *NO PO CONTRAST TECHNIQUE: After the administration of IV contrast, 5 mm thick sections acquired from the diaphragms to the symp hysis. 5 mm thick coronal and sagittal reformats were acquired. For radiation dose reduction, the f ollowing was used: automated exposure control, adjustment of mA and/or kV according to patient size. COMPARISON: 07/13/2014 . FINDINGS: Image quality: Excellent. ABDOMEN: Lung bases: Please refer to CT of chest findings. Solid organs: Liver and spleen are normal in size. Numerous well-circumscribed hypodensities are see n scattered throughout liver parenchyma not significantly changed from previous studies and likely re present hepatic cysts. Spleen shows normal contrast enhancement. Gallbladder is surgically absent Bi liary system is non dilated. Pancreas enhances normally. No adrenal nodules. Extensive bilateral re nal cortical and peripelvic cysts are noted. No gross enhancing renal lesion or nephrolithiasis. No h ydronephrosis or perinephric fat stranding. Peritoneum and bowel: Bowel loops demonstrate normal wall thickness and caliber. No free fluid or a ir. Mild fecal stasis in the colon is seen. Nodes and vessels: No retroperitoneal or mesenteric adenopathy by size criteria. Aorta and inferior vena cava are normal in size. Miscellaneous: There is prior ventral hernia repair with post surgical changes and not significantly changed from 2015 study. PELVIS: Genitourinary: Bladder wall thickness is normal. Miscellaneous: No inguinal adenopathy by size criteria. Bilateral inguinal hernia containing fat onl y is seen. Bones: No suspicious bony lesions. No vertebral body compression fractures. Patient is status post prior internal fixation of right proximal femur. No acute pelvic fracture or dislocation. IMPRESSION: 1. No acute solid organ injury within abdomen or pelvis. No free fluid of free air. 2. Numerous hypodensities scattered in the liver parenchyma likely represent hepatic cysts. 3. Bilateral prominent renal cortical and peripelvic cysts. No renal stone or hydronephrosis. 4. No gross acute fracture or dislocation is seen. Prior internal fixation of right femur. 5. Evidence of prior ventral hernia repair. Reviewed by: Devyn Mendoza MD on 06/11/2020 9:58 AM [place] Approved by: Devyn Mendoza MD on 06/11/2020 9:58 AM [place] Station ID: [id number]
[2020-06-11] MEDS ORDERED: KETOROLAC 30 MG/ML VIAL IVP STA (11:46)
[2020-06-11] MEDS ORDERED: ACETAMINOPHEN 325 MG TABLET PO STA (11:46)
[2020-06-11 13:00] VITALS: BP 146/87
== END 2020-06-11 12:50 | disposition home or self-care (01) ==
LOC: EDUNIT# → ED 08:25
DX: R53.1 Weakness (principal); S20.212A Contusion of left front wall of thorax, initial encounter; W18.30XA Fall on same level, unspecified, initial encounter; Y93.01 Activity, walking, marching and hiking; Y92.008 Other place in unspecified non-institutional (private) residence as the place of occurrence of the external cause; I10 Essential (primary) hypertension
CPT/HCPCS: 36415; 70450; 71260; 74177; 80053; 83735; 84484; 85025; 93005; 99284; A9270; Q9967

== ENCOUNTER 2020-09-23 14:39 | Outpatient (CLI) | payer MEDICARE, OTHER ==
[2020-09-23 15:25] LABS: % IRON SATURATION 45 % (20-50); IRON 146 ug/dL (45-182); TOTAL IRON BINDING CAPACITY 323 ug/dL (250-450); TRANSFERRIN 231 mg/dL (180-329)
== END 2020-09-23 14:40 | disposition home or self-care (01) ==
LOC: LAB 14:39
PROVIDERS: ATTEND Family Medicine
DX: D64.9 Anemia, unspecified (principal)
CPT/HCPCS: 36415; 82728; 83540; 84466

== ENCOUNTER 2021-06-04 18:12 | Emergency (ER) | payer MEDICARE, OTHER ==
[2021-06-04 18:49] LABS: BASOPHILS % (AUTO) 0.6 %; EOSINOPHILS # (AUTO) 0.2 10^3/uL (0.0-0.7); EOSINOPHILS % (AUTO) 3.2 %; HCT - HEMATOCRIT 42.3 % (42.0-52.0); HGB - HEMOGLOBIN 14.8 g/dL (14.0-18.0); LYMPHOCYTES # (AUTO) 2.1 10^3/uL (1.5-3.5); MEAN CORPUSCULAR HEMOGLOBIN 32.8 pg (27.0-31.0); MEAN CORPUSCULAR VOLUME 93.8 fL (80.0-94.0); MEAN PLATELET VOLUME 10.1 fL (7.4-11.4); MONOCYTES # (AUTO) 0.6 10^3/uL (0.0-1.0); MONOCYTES % (AUTO) 11.4 %; NEUTROPHILS # (AUTO) 2.1 10^3/uL (1.5-6.6); NEUTROPHILS % (AUTO) 42.6 %; PLT - PLATELET COUNT 133 10^3/uL (130-450); RED BLOOD COUNT 4.51 10^6/uL (4.70-6.10); RED CELL DISTRIBUTION WIDTH 12.5 % (12.0-15.0)
[2021-06-04 18:54] LABS: PT - PROTHROMBIN TIME 11.6 secs (9.9-12.6)
[2021-06-04 19:00] LABS: ALBUMIN 3.7 g/dL (3.2-5.5); ALBUMIN/GLOBULIN RATIO 1.3 (1.0-2.2); BILIRUBIN,TOTAL 0.8 mg/dL (0.2-1.0); CALCIUM 9.4 mg/dL (8.5-10.3); CREATININE 1.3 mg/dL (0.6-1.2); POTASSIUM 3.7 mmol/L (3.5-5.0); TOTAL PROTEIN 6.6 g/dL (6.7-8.2)
[2021-06-04] MEDS ORDERED: IOVERSOL 320 100 ML VIAL IVP ONE ×2 (19:05→20:13)
--- NOTE | 2021-06-04 19:12 | ED Physician Documentation ---
History of Present Illness - Stated complaint Stated Complaint: TEMP AMS - Chief complaint Chief Complaint: Neuro - Additonal information Additional information: 80-year-old male presents the emergency department for A brief episode of confu nia. He was attempting to turn on the TV and could not figure out how to do so. He ultimately had asked his for help. She reports that she did a FAST exam and found that he was walking normally and had no slurred speech facial droop or arm or leg weakness. He has had TIAs in the past. His primary care doctor recently made a referral to a neurologist because he has had brief episodes of confusion. They thought that perhaps he was developing Parkinson's. He has had an MRI at [facility] within the last few months but the results are not clear at this time. Medications include daily aspirin and Fioricet and multiple vitamins. He takes no medications for blood pressure cholesterol or thyroid Review of Systems Constitutional: denies: Fever, Chills Eyes: reports: Reviewed and negative Ears: reports: Reviewed and negative Throat: reports: Reviewed and negative Cardiac: reports: Reviewed and negative Respiratory: reports: Reviewed and negative GI: reports: Reviewed and negative : reports: Reviewed and negative Skin: reports: Reviewed and negative Musculoskeletal: denies: Neck pain, Back pain Neurologic: reports: Confused. denies: Generalized weakness, Focal weakness, Numbness, Syncope, Seizure, Altered mental status, Headache, Head injury, LOC PD PAST MEDICAL HISTORY - Past Medical History Cardiovascular: Hypertension, Atrial flutter, Atrial fibrillation, Valve disorder, Other Respiratory: None Endocrine/Autoimmune: None GI: GERD, Ulcers, Pancreatitis, Other : Other HEENT: None Psych: None Musculoskeletal: None, Osteoarthritis Derm: Other - Past Surgical History Past Surgical History: Yes General: Cholecystectomy, Hiatal hernia repair, Colonoscopy, EGD, Other Cardiovascular: Valve replacement HEENT: Cataracts - Present Medications Home Medications: Ambulatory Orders Medication Instructions Recorded Confirmed Aspirin Chewable [St Christoph 81 mg PO DAILY 10/30/13 04/22/17 Aspirin] Omeprazole 20 mg PO DAILY 10/30/13 04/22/17 SUMAtriptan [Imitrex] 50 mg PO ONCE PRN 10/30/13 04/22/17 Butalbital/Aspirin/Caffeine 1 each PO ONCE 07/13/14 04/22/17 [Fiorinal 50-325-40 mg Capsule] Finasteride [Proscar] 5 mg ORAL 06/11/20 Lactobacillus Acidophilus 1 each PO 06/11/20 06/11/20 [Probiotic Acidophilus] - Allergies Allergies/Adverse Reactions: Allergies Allergy/AdvReac Type Severity Reaction Status Date / Time iobenguane iodine-131 AdvReac Mild Itching Verified 06/04/21 18:19 - Social History Does the pt smoke?: No Smoking Status: Never smoker Does the pt drink ETOH?: Yes Does the pt have substance abuse?: No - Immunizations Immunizations are current?: Yes PD ED PE EXPANDED - General General: Alert, No acute distress, Well developed/nourished - HEENT HEENT: Atraumatic, PERRL, EOMI, Moist mucous membranes - Neck Neck: Supple w/out meningeal sx. No: Adenopathy - Cardiac Cardiac: Regular Rate, Radial strong equal, Pedal strong equal, Cap refill < 2 sec. No: Murmur Present - Respiratory Respiratory: Clear to ausultation krystyna. No: Distress, Labored - Abdomen Abdomen: Normal Bowel sounds. No: Tender to palpation - Derm Derm: Normal color, Warm and dry. No: Rash - Extremities Extremities: Normal. No: Deformity, Tenderness - Neuro Neuro: Alert and Oriented X 3, CNII-XII intact, Cerebellar nl, Normal gait, Normal finger nose, Normal speech. No: Weakness, Abnormal sensation, Dyscongugate gaze, Nystagmus - GCS Eye Opening: Spontaneous Motor: Obeys Commands Verbal: Oriented Total: 15 Results - Vitals Vitals: Vital Signs - 24 hr 06/04/21 06/04/21 06/04/21 18:20 18:42 20:48 Temperature 36.5 C Heart Rate 60 58 L 77 Respiratory 16 21 26 H Rate Blood Pressure 160/64 H 135/73 H 140/70 H O2 Saturation 99 100 99 Oxygen O2 Source Room air - EKG (time done) 1923 Rate: Rate (enter#) (59) Rhythm: NSR, Other (PAC) Intervals: Prolonged QT, RBBB. No: Normal MO QRS: Normal Compare to prior EKG: Unchanged from prior EKG Computer interpretation: Agree with computer - Labs Labs: Laboratory Tests 06/04/21 06/04/21 06/04/21 18:42 18:42 18:42 WBC 5.0 RBC 4.51 L Hgb 14.8 Hct 42.3 MCV 93.8 MCH 32.8 H MCHC 35.0 RDW 12.5 Plt Count 133 MPV 10.1 Neut # (Auto) 2.1 Lymph # (Auto) 2.1 Bland # (Auto) 0.6 Eos # (Auto) 0.2 Baso # (Auto) 0.0 Absolute Nucleated RBC 0.00 Nucleated RBC % 0.0 PT 11.6 INR 1.0 Sodium 139 Potassium 3.7 Chloride 108 Carbon Dioxide 22 Anion Gap 9.0 BUN 27 H Creatinine 1.3 H Estimated GFR (MDRD) 53 L Glucose 111 H Calcium 9.4 Total Bilirubin 0.8 AST 16 ALT 12 Alkaline Phosphatase 39 L Troponin I High Sens Total Protein 6.6 L Albumin 3.7 Globulin 2.9 Albumin/Globulin Ratio 1.3 Lipase 33 06/04/21 18:42 WBC RBC Hgb Hct MCV MCH MCHC RDW Plt Count MPV Neut # (Auto) Lymph # (Auto) Bland # (Auto) Eos # (Auto) Baso # (Auto) Absolute Nucleated RBC Nucleated RBC % PT INR Sodium Potassium Chloride Carbon Dioxide Anion Gap BUN Creatinine Estimated GFR (MDRD) Glucose Calcium Total Bilirubin AST ALT Alkaline Phosphatase Troponin I High Sens 21.6 H* Total Protein Albumin Globulin Albumin/Globulin Ratio Lipase - Rads (name of study) CTA head Radiology: Final report received (No significant abnormality) CTA neck Radiology: Final report received (No significant arterial abnormality) PD MEDICAL DECISION MAKING - ED course Complexity details: reviewed old records, reviewed results, re-evaluated patient, considered differential, d/w patient, d/w family ED course: 80-year-old male presents emergency department for evaluation of a brief episode of confusion at home in which she was unable to remember how to turn on the TV or operate his remote control. His has reported that he has had brief episodes of confusion with increasing frequency over the last year or so. He has been referred to a neurologist for follow-up. He presented with no acute focal neuro deficits and was alert and well oriented. Screening labs showed no acute worrisome findings. EKG was nonischemic though he did have recurrent and frequent PVCs. CT angiogram of the head neck was also unremarkable for age. Patient is scheduled to see a neurologist in follow-up on this upcoming week which is appropriate. Clinically he does not appear to be having a stroke or TIA at this time though that does remain in the differential and an MRI as an outpatient should be considered. His is also reported that his Watch has occasionally alerted him to a heart rate that is less than 50. He has not had any fainting episodes or syncope. While here in the emergency department his heart rate is typically been in the 50s and 60s. He is not on a beta-katerina. I discussed that he should be seen by a central supply tech for evaluation of a Holter monitor. Emergent return precautions were discussed for fainting, chest pain shortness of air stroke symptoms or an altered gait. Departure - Departure Disposition: 01 Home, Self Care Clinical Impression: Confusion Condition: Stable Record reviewed to determine appropriate education?: Yes Comments: Emil you came to the ER today for a brief episode of confusion in which you were unable to figure out how to turn on the TV or operate the remote. You did not present to the ER with signs of facial droop, slurred speech altered gait altered sensation or any headache. Your vital signs here in the emergency department have not shown any worrisome findings. Your heart rate has not been too low or high. You do occasionally have PVCs. Your screening labs showed no acute worrisome abnormalities. We did do CT angiograms of the head and neck and no findings of severely reduced blood flow were seen. It is important that you continue follow-up with your neurologist on to further evaluate these episodes of confusion that he has had. I do recommend he continue to take the daily aspirin. You reported to this provider that his watch has occasionally notified him of a heart rate less than 50. He is not taking any medications to control his heart rate. I do recommend following up with his primary care doctor or a central supply tech to discuss if this is something that needs further evaluation as with something such as a Holter monitor. His heart rate here in the emergency department has been normal. If at any point he develops slurred speech, has facial droop, sudden severe headache, uncontrolled vomiting or you have any concerns of stroke or heart attack do not hesitate to return immediately to the ER.
[2021-06-04] MEDS ORDERED: SODIUM CHLORIDE 0.9% 1,000 ML IV STA (19:14)
--- NOTE | 2021-06-04 20:35 | CT Report ---
PROCEDURE: ANGIO HEAD W/WO INDICATIONS: AMS; unsteady gait CONTRAST: IV CONTRAST: Optiray 320 ml: 100 PO CONTRAST: *NO PO CONTRAST TECHNIQUE: Precontrast 4.5 mm thick angled axial sections acquired from the foramen magnum to the vertex. Afte r the administration of intravenous contrast, 1 mm thick sections acquired through the [place] of Will is. Postcontrast 4.5 mm thick sections then re-acquired from the foramen magnum to the vertex. 3-di mensional lrshapi-xvavyofdl-gfmpxmdnhm (MIP) and/or volume rendering reformats were acquired of the c entral intracranial vasculature. For radiation dose reduction, the following was used: automated ex posure control, adjustment of mA and/or kV according to patient size. COMPARISON: June 11, 2020 FINDINGS: Image quality: Excellent. Anterior circulation: Intracranial internal carotid arteries are normal in size and flow. The flow within the paired anterior cerebral arteries is normal and symmetric. The flow within the middle cerebral arteries is normal and symmetric. The anterior communicating artery is seen. No aneurysms are seen. 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 The right V4 is d ominant. Normal appearance of the basilar artery. Flow within the posterior cerebral arteries is normal and symmetric. No aneurysms are seen. CSF spaces: Ventricles are normal in size and shape. Basal cisterns are patent. No extra-axial fluid collections. Brain: No midline shift. No acute intracranial hemorrhage. Saldivar-white matter interface appears int act. Redemonstrated right frontoparietal CSF attenuation areas, most consistent with arachnoid cysts . Skull and face: Calvarium and facial bones appear intact, without suspicious lesions. Sinuses: Visualized sinuses and mastoids are clear. IMPRESSION: 1.No significant abnormality. Reviewed by: Henry French MD on 06/04/2021 8:33 PM PST Approved by: Henry French MD on 06/04/2021 8:33 PM PST Station ID: [id number]
--- NOTE | 2021-06-04 20:43 | CT Report ---
PROCEDURE: ANGIO NECK W INDICATIONS: AMS; unsteady gait CONTRAST: IV CONTRAST: Optiray 320 ml: 100 PO CONTRAST: *NO PO CONTRAST TECHNIQUE: After the administration of intravenous contrast, 1.5 mm axial sections acquired from the aortic arch to the Elim Ira of Loyd. Coronal 3-D maximum intensity projection (MIP) and/or volume rendering ref ormats were then performed. For radiation dose reduction, the following was used: automated exposur e control, adjustment of mA and/or kV according to patient size. COMPARISON: None. FINDINGS: Image quality: Some images are compromised by motion artifact. Beam hardening is noted for the florencia cardoza's dental hardware. Carotid system: The great vessels demonstrate a conventional anatomy as they arise from the aortic a rch. The origins of the common carotid arteries appear patent. The common carotid arteries demonstrate normal calibers and courses. The bifurcation regions appear normal bilaterally. The internal carotid arteries demonstrate normal caliber and course. Posterior circulation: The origins of the vertebral arteries appear patent. The more superior portions of the vertebral arteries demonstrate normal course and caliber. They apolinar n to form a normal appearing basilar artery. Soft tissues: Visualized neck soft tissues demonstrate no suspicious abnormalities. Mild asymmetric enlargement of the right thyroid, which is not well evaluated. Bones: Multifocal degenerative changes. IMPRESSION: No significant arterial abnormality The estimate of stenosis included in the report of the imaging study was calculated using the NASCET method Reviewed by: Henry French MD on 06/04/2021 8:42 PM PST Approved by: Henry French MD on 06/04/2021 8:42 PM PST Station ID: [id number]
[2021-06-04 21:16] VITALS: BP 152/69
== END 2021-06-04 21:16 | disposition home or self-care (01) ==
LOC: ED 18:12
DX: R41.0 Disorientation, unspecified (principal); Z86.73 Personal history of transient ischemic attack (TIA), and cerebral infarction without residual deficits; I49.3 Ventricular premature depolarization; I45.10 Unspecified right bundle-branch block; I10 Essential (primary) hypertension; Z79.82 Long term (current) use of aspirin
CPT/HCPCS: 36415; 70496; 70498; 80053; 83690; 84484; 85025; 85610; 93005; 99283; 99284; Q9967

== ENCOUNTER 2022-07-13 10:48 | Outpatient (CLI) | payer MEDICARE, OTHER ==
[2022-07-13 11:12] LABS: BASOPHILS % (AUTO) 0.8 %; EOSINOPHILS # (AUTO) 0.1 10^3/uL (0.0-0.7); EOSINOPHILS % (AUTO) 1.5 %; HCT - HEMATOCRIT 42.2 % (42.0-52.0); LYMPHOCYTES # (AUTO) 1.2 10^3/uL (1.5-3.5); LYMPHOCYTES % (AUTO) 30.2 %; MEAN CORPUSCULAR HEMOGLOBIN 31.5 pg (27.0-31.0); MEAN CORPUSCULAR HGB CONC 33.2 g/dL (32.0-36.0); MEAN CORPUSCULAR VOLUME 94.8 fL (80.0-94.0); MEAN PLATELET VOLUME 9.7 fL (7.4-11.4); MONOCYTES # (AUTO) 0.3 10^3/uL (0.0-1.0); MONOCYTES % (AUTO) 8.4 %; NEUTROPHILS # (AUTO) 2.3 10^3/uL (1.5-6.6); NEUTROPHILS % (AUTO) 58.8 %; PLT - PLATELET COUNT 105 10^3/uL (130-450); RED BLOOD COUNT 4.45 10^6/uL (4.70-6.10); RED CELL DISTRIBUTION WIDTH 12.4 % (12.0-15.0); WHITE BLOOD COUNT 3.9 x10^3/uL (4.8-10.8)
[2022-07-13 11:43] LABS: THYROID STIMULATING HORMONE 1.96 uIU/mL (0.34-5.60)
[2022-07-13 11:46] LABS: ALBUMIN 3.7 g/dL (3.2-5.5); ALBUMIN/GLOBULIN RATIO 1.3 (1.0-2.2); BILIRUBIN,TOTAL 1.1 mg/dL (0.2-1.0); CALCIUM 9.3 mg/dL (8.5-10.3); CREATININE 1.7 mg/dL (0.6-1.2); POTASSIUM 4.2 mmol/L (3.5-5.0); TOTAL PROTEIN 6.6 g/dL (6.7-8.2)
== END 2022-07-13 10:49 | disposition home or self-care (01) ==
LOC: LAB 10:48
PROVIDERS: ATTEND Family Medicine
DX: I49.8 Other specified cardiac arrhythmias (principal); G43.109 Migraine with aura, not intractable, without status migrainosus; F03.90 Unspecified dementia, unspecified severity, without behavioral disturbance, psychotic disturbance, mood disturbance, and anxiety; Z95.2 Presence of prosthetic heart valve
CPT/HCPCS: 36415; 80053; 84443; 85025

== ENCOUNTER 2022-08-15 12:48 | Outpatient (CLI) | payer MEDICARE, OTHER | END 2022-08-15 12:49 | disposition home or self-care (01) | LOC: MAC.INF 12:48 | PROVIDERS: ATTEND Family Medicine | DX: I49.8 Other specified cardiac arrhythmias (principal); Z95.2 Presence of prosthetic heart valve | CPT/HCPCS: 93246 ==

== ENCOUNTER 2022-09-05 12:45 | Outpatient (CLI) | payer MEDICARE, OTHER | END 2022-09-05 12:46 | disposition home or self-care (01) | LOC: DI 12:45 | PROVIDERS: ATTEND Family Medicine | DX: I49.8 Other specified cardiac arrhythmias (principal); Z95.2 Presence of prosthetic heart valve; I51.7 Cardiomegaly; I35.1 Nonrheumatic aortic (valve) insufficiency; I77.810 Thoracic aortic ectasia | CPT/HCPCS: 93306 ==

== ENCOUNTER 2022-09-11 15:50 | Outpatient (CLI) | payer MEDICARE, OTHER ==
[2022-09-11 16:07] LABS: BASOPHILS % (AUTO) 0.8 %; EOSINOPHILS # (AUTO) 0.1 10^3/uL (0.0-0.7); EOSINOPHILS % (AUTO) 2.2 %; HCT - HEMATOCRIT 42.1 % (42.0-52.0); HGB - HEMOGLOBIN 14.3 g/dL (14.0-18.0); LYMPHOCYTES # (AUTO) 1.7 10^3/uL (1.5-3.5); LYMPHOCYTES % (AUTO) 34.9 %; MEAN CORPUSCULAR VOLUME 94.2 fL (80.0-94.0); MEAN PLATELET VOLUME 10.4 fL (7.4-11.4); MONOCYTES # (AUTO) 0.5 10^3/uL (0.0-1.0); MONOCYTES % (AUTO) 10.8 %; NEUTROPHILS # (AUTO) 2.6 10^3/uL (1.5-6.6); NEUTROPHILS % (AUTO) 51.1 %; PLT - PLATELET COUNT 111 10^3/uL (130-450); RED BLOOD COUNT 4.47 10^6/uL (4.70-6.10); RED CELL DISTRIBUTION WIDTH 12.2 % (12.0-15.0)
[2022-09-11 16:35] LABS: INR 1.1 (0.8-1.2); PT - PROTHROMBIN TIME 11.9 secs (9.9-12.6)
== END 2022-09-11 15:51 | disposition home or self-care (01) ==
LOC: LAB 15:50
PROVIDERS: ATTEND Internal Medicine Cardiovascular Disease
DX: Z95.2 Presence of prosthetic heart valve (principal)
CPT/HCPCS: 36415; 85025; 85610

== ENCOUNTER 2022-09-14 13:25 | Outpatient (CLI) | payer MEDICARE, OTHER | END 2022-09-14 13:26 | disposition home or self-care (01) | LOC: MAC.INF 13:25 | PROVIDERS: ATTEND Family Medicine | DX: I45.4 Nonspecific intraventricular block (principal); I44.0 Atrioventricular block, first degree; I47.1 Supraventricular tachycardia; I47.20 Ventricular tachycardia, unspecified; I49.1 Atrial premature depolarization; I49.3 Ventricular premature depolarization | CPT/HCPCS: 93248 ==

== ENCOUNTER 2022-09-15 14:25 | Outpatient (CLI) | payer MEDICARE, OTHER ==
[2022-09-15 15:03] LABS: CALCIUM 9.3 mg/dL (8.5-10.3); CREATININE 1.4 mg/dL (0.6-1.2); POTASSIUM 4.1 mmol/L (3.5-5.0)
== END 2022-09-15 14:26 | disposition home or self-care (01) ==
LOC: LAB 14:25
PROVIDERS: ATTEND Internal Medicine Cardiovascular Disease
DX: Z95.2 Presence of prosthetic heart valve (principal)
CPT/HCPCS: 36415; 80048

== ENCOUNTER 2022-11-08 08:50 | Outpatient (CLI) | payer MEDICARE, OTHER ==
--- NOTE | 2022-11-08 10:24 | XRAY Report ---
PROCEDURE: Lumbar Spine Complete INDICATIONS: LOW BACK PAIN TECHNIQUE: 4 views of the lumbar spine were acquired. COMPARISON: None. FINDINGS: Bones: 5 gbb-gjv-wqwtqcj vertebrae are present. There is normal bony alignment. No vertebral body compression fractures. No suspicious bony lesions. There is multilevel intervertebral disc space na rrowing and endplate sclerosis. Facet sclerosis is present within the lower lumbar spine. No spondylo lysis. Soft tissues: Overlying bowel gas pattern is normal. No suspicious soft tissue calcifications. IMPRESSION: 1. Mild to moderate degenerative change throughout the lumbar spine. No spondylolysis or spondylolist hesis. Reviewed by: Jen Garcia MD on 11/08/2022 10:22 AM PDT Approved by: Jen Garcia MD on 11/08/2022 10:22 AM PDT Station ID: [id number]
== END 2022-11-08 08:51 | disposition home or self-care (01) ==
LOC: DI 08:50
PROVIDERS: ATTEND Family Medicine
DX: M47.816 Spondylosis without myelopathy or radiculopathy, lumbar region (principal)

== ENCOUNTER 2022-11-15 12:17 | Emergency (ER) | payer MEDICARE, OTHER ==
--- NOTE | 2022-11-15 14:37 | ED Physician Documentation ---
PD HPI URI - Stated complaint Stated Complaint: C+ - Chief complaint Chief Complaint: Trauma Hd/Nk - History obtained from History obtained from: Patient - History of Present Illness Timing - onset: Yesterday Timing duration: Days (2) Timing details: Abrupt onset, Still present Associated symptoms: Chills, Sweats, Nasal congestion, Dry cough, Chest pain (with coughing), Dyspnea. No: NVD Contributing factors: Sick contact (his with COVID a week ago and is improved the past 2-3 days though still had positive home test.). No: Travel, COPD / asthma Similar symptoms before: Has not had sx before Recently seen: Not recently seen (he called PMD office to get Rx for Paxlovid and was told he had to be seen in order for that. His had gotten script phoned to pharmacy from office so he did not understand th difference. He was heading out to car and tripped forward and struck right periorbital area and chest. No anticoags.) Review of Systems Constitutional: reports: Chills, Myalgias, Fatigue Nose: reports: Congestion Cardiac: reports: Chest pain / pressure (with coughing, and some right chest after falling to ground.). denies: Palpitations, Pedal edema, Calf pain Respiratory: reports: Dyspnea, Cough. denies: Wheezing GI: denies: Abdominal Pain, Vomiting, Diarrhea Skin: reports: Abrasion (s) (hand and knees, elbow right. Good ROM of extremities.). denies: Laceration (s) Musculoskeletal: denies: Neck pain, Back pain PD PAST MEDICAL HISTORY - Past Medical History Cardiovascular: Hypertension, Atrial flutter, Atrial fibrillation, Valve disorder, Other Respiratory: None Endocrine/Autoimmune: None GI: GERD, Ulcers, Pancreatitis, Other : Other HEENT: None Psych: None Musculoskeletal: None, Osteoarthritis Derm: Other - Past Surgical History Past Surgical History: Yes General: Cholecystectomy, Hiatal hernia repair, Colonoscopy, EGD, Other Cardiovascular: Valve replacement HEENT: Cataracts - Present Medications Home Medications: Ambulatory Orders Medication Instructions Recorded Confirmed Aspirin Chewable [St Christoph 81 mg PO DAILY 10/30/13 11/15/22 Aspirin] Methylphenidate [Ritalin] 5 mg PO DAILY 08/15/22 11/15/22 Memantine HCl [Namenda] 5 mg PO BID 11/15/22 11/15/22 - Allergies Allergies/Adverse Reactions: Allergies Allergy/AdvReac Type Severity Reaction Status Date / Time No Known Drug Allergies Allergy Verified 11/15/22 12:42 - Social History Does the pt smoke?: No Smoking Status: Never smoker Does the pt drink ETOH?: Yes Does the pt have substance abuse?: No - Immunizations Immunizations are current?: Yes PD ED PE NORMAL - Vitals Vital signs reviewed: Yes - General General: Alert and oriented X 3, No acute distress, Well developed/nourished - HEENT HEENT: PERRL, EOMI, Other (right periorbital lateral and eyebrow area with bruisng and tenderness without bony deformity. ) - Neck Neck: Supple, no meningeal sign, No bony TTP, No adenopathy - Cardiac Cardiac: RRR, No murmur - Respiratory Respiratory: No respiratory distress, Clear bilaterally (no noted wheeze nor crackles. ), Other (right anterolateral chest wall with some local tenderness withjout crepitance nor deformity. ) - Abdomen Abdomen: Soft, Non tender - Derm Derm: Normal color, Warm and dry - Extremities Extremities: No edema, Other (both knees and right elbow with superficial abrasions. Has good ROM of all the joints. No effusions.) - Neuro Neuro: Alert and oriented X 3, No motor deficit, No sensory deficit, Normal speech Results - Vitals Vitals: Vital Signs - 24 hr 11/15/22 11/15/22 12:43 15:28 Temperature 37.5 C Heart Rate 60 90 Respiratory 18 18 Rate Blood Pressure 99/51 L 100/65 O2 Saturation 97 98 Oxygen O2 Source Room air PD Medical Decision Making - ED course Complexity details: considered differential (no LOC nor concussive symptoms. Not on DOAC/coumadin. Normal neuro. Shared discussion with patient to clear clnically and not undergo CT/imaging. He is really mainly interested in Paxlovid. ), d/w patient, d/w family (spouse) Departure - Departure Disposition: 01 Home, Self Care Clinical Impression: COVID-19, Accidental fall, Abrasions of multiple sites, Facial contusion, Chest wall contusion Condition: Stable Record reviewed to determine appropriate education?: Yes Instructions: ED Contusion Chest Wall, ED URI Viral Follow-Up: Paddy Vazquez MD [Primary Care Provider] - Comments: Takes the Paxlovid combination antiviral medicines as directed (3 tablets twice daily for 5 days). You should be able to continue usual medications. You do have abrasions and bruises but clinically you do not seem to have any notable injuries such as concussion or significant chest injury. I do not feel compelled to need to do any x-rays or imaging and that seems comfortable to you. He will obviously be sore in the injured areas. I would suggest Aleve 2 tablets 2-3 times daily for the next several days to a week. Add Tylenol every 4-6 hours if needed for pain. Use some ointment to the abrasions area once or twice daily to keep them from being too dry. Recheck if signs of infection. Recheck if persistent facial or head pains beyond several days and also recheck if you have worsening COVID symptoms generally with trouble breathing vomiting etc. I am not sure why your primary care suggested you come to be evaluated prior to prescribing the Paxlovid. Discharge Date/Time: 11/15/22 15:27
[2022-11-15] MEDS ORDERED: NAPROXEN 250 MG TABLET PO STA (15:02)
[2022-11-15] MEDS ORDERED: ACETAMINOPHEN 325 MG TABLET PO STA (15:02)
[2022-11-15] MEDS ORDERED: NIRMATRELVIR/RITONAVIR PREPACK PO STA (15:02)
[2022-11-15 15:29] VITALS: BP 100/65
== END 2022-11-15 15:27 | disposition home or self-care (01) ==
LOC: ED 12:17
DX: U07.1 COVID-19 (principal); S00.83XA Contusion of other part of head, initial encounter; S20.211A Contusion of right front wall of thorax, initial encounter; I10 Essential (primary) hypertension; I48.91 Unspecified atrial fibrillation; S80.212A Abrasion, left knee, initial encounter; S80.211A Abrasion, right knee, initial encounter; S50.311A Abrasion of right elbow, initial encounter; W01.0XXA Fall on same level from slipping, tripping and stumbling without subsequent striking against object, initial encounter
CPT/HCPCS: 99282; 99283; A9270; J3490

== ENCOUNTER 2023-07-05 09:24 | Outpatient (CLI) | payer MEDICARE, OTHER | END 2023-07-05 09:25 | disposition home or self-care (01) | LOC: DI 09:24 | PROVIDERS: ATTEND Internal Medicine Cardiovascular Disease | DX: I08.0 Rheumatic disorders of both mitral and aortic valves (principal); Z95.2 Presence of prosthetic heart valve | CPT/HCPCS: 93306 ==

== ENCOUNTER 2023-08-16 12:24 | Outpatient (CLI) | payer MEDICARE, OTHER ==
[2023-08-16 13:14] LABS: BASOPHILS % (AUTO) 0.8 %; EOSINOPHILS # (AUTO) 0.1 10^3/uL (0.0-0.7); EOSINOPHILS % (AUTO) 3.8 %; HCT - HEMATOCRIT 44.2 % (42.0-52.0); HGB - HEMOGLOBIN 14.7 g/dL (14.0-18.0); LYMPHOCYTES # (AUTO) 1.2 10^3/uL (1.5-3.5); MEAN CORPUSCULAR HEMOGLOBIN 32.5 pg (27.0-31.0); MEAN CORPUSCULAR HGB CONC 33.3 g/dL (32.0-36.0); MEAN CORPUSCULAR VOLUME 97.6 fL (80.0-94.0); MEAN PLATELET VOLUME 12.2 fL (7.4-11.4); MONOCYTES # (AUTO) 0.4 10^3/uL (0.0-1.0); MONOCYTES % (AUTO) 10.6 %; NEUTROPHILS % (AUTO) 52.8 %; PLT - PLATELET COUNT 130 10^3/uL (130-450); RED BLOOD COUNT 4.53 10^6/uL (4.70-6.10); RED CELL DISTRIBUTION WIDTH 13.5 % (12.0-15.0); WHITE BLOOD COUNT 3.7 x10^3/uL (4.8-10.8)
[2023-08-16 13:16] LABS: CRP - C-REACTIVE PROTEIN < 0.5 mg/dL (<0.5)
[2023-08-16 13:29] LABS: BILIRUBIN,URINE NEGATIVE (NEGATIVE); GLUCOSE, URINE (UA) NEGATIVE (NEGATIVE); KETONES,URINE (UA) NEGATIVE (NEGATIVE); LEUKOCYTE ESTERASE, URINE NEGATIVE (NEGATIVE); NITRITE,URINE NEGATIVE (NEGATIVE); OCCULT BLOOD,URINE NEGATIVE (NEGATIVE); PROTEIN,URINE NEGATIVE (NEGATIVE); UROBILINOGEN,URINE 0.2 (NORMAL) E.U./dL (NORMAL)
[2023-08-16 13:31] LABS: THYROID STIMULATING HORMONE 2.53 uIU/mL (0.34-5.60)
[2023-08-16 13:34] LABS: BACTERIA,URINE Rare /HPF (None Seen); CLARITY,URINE CLEAR (CLEAR); RBC,URINE None Seen /HPF (0-5); SQUAMOUS EPITHELIAL CELL,UR NONE SEEN (<= Few); WBC,URINE 0-3 /HPF (0-3)
[2023-08-16 13:44] LABS: ALBUMIN 3.9 g/dL (3.2-5.5); ALBUMIN/GLOBULIN RATIO 1.4 (1.0-2.2); ALKALINE PHOSPHATASE 32 IU/L (42-121); ALT ALANINE AMINOTRANSFERASE 10 IU/L (10-60); AST ASPARTATE AMINOTRANSFERASE 22 IU/L (10-42); BUN - BLOOD UREA NITROGEN 23 mg/dL (6-20); CALCIUM 10.2 mg/dL (8.5-10.3); CARBON DIOXIDE - CO2 25 mmol/L (21-32); CHLORIDE 107 mmol/L (101-111); CREATININE 1.6 mg/dL (0.6-1.3); GFR - MDRD 42 (>89); GLUCOSE 97 mg/dL (74-104); POTASSIUM 4.8 mmol/L (3.5-4.5); SODIUM 138 mmol/L (135-145); TOTAL PROTEIN 6.7 g/dL (6.4-8.9)
== END 2023-08-16 12:25 | disposition home or self-care (01) ==
LOC: LAB 12:24
PROVIDERS: ATTEND Registered Nurse
DX: R35.0 Frequency of micturition (principal); R53.83 Other fatigue; R41.3 Other amnesia; R30.0 Dysuria
CPT/HCPCS: 36415; 80053; 81001; 84443; 85025; 85651; 86140; 87086

== ENCOUNTER 2023-08-16 12:29 | Outpatient (CLI) | payer MEDICARE, OTHER ==
--- NOTE | 2023-08-16 14:03 | XRAY Report ---
PROCEDURE: Chest 2V INDICATIONS: FATIGUE TECHNIQUE: 2 views of the chest were acquired. COMPARISON: Chest x-ray 04/22/2017. FINDINGS: Surgical changes and devices: Median sternotomy wires. The superior most wire is fractured. Aortic v alvuloplasty.. Lungs and pleura: Blunting of left costophrenic angle with adjacent atelectasis versus consolidation . Mediastinum: Mediastinal contours appear normal. Heart size is normal. Bones and chest wall: No suspicious bony lesions. Overlying soft tissues appear unremarkable. IMPRESSION: Likely small left pleural effusion with adjacent atelectasis versus consolidation. Recommend follow-u p radiograph to resolution. Reviewed by: Orville Mitchell MD on 08/16/2023 2:01 PM PST Approved by: Orville Mitchell MD on 08/16/2023 2:01 PM PST Station ID: [id number]
== END 2023-08-16 12:30 | disposition home or self-care (01) ==
LOC: DI 12:29
PROVIDERS: ATTEND Registered Nurse
DX: R35.0 Frequency of micturition (principal); R41.3 Other amnesia; R53.83 Other fatigue; R30.0 Dysuria; J90 Pleural effusion, not elsewhere classified; R91.8 Other nonspecific abnormal finding of lung field
CPT/HCPCS: 36415; 80053; 81001; 84443; 85025; 85651; 86140; 87086

== ENCOUNTER 2023-08-23 09:53 | Outpatient (CLI) | payer MEDICARE, OTHER ==
[2023-08-23 10:14] LABS: EOSINOPHILS # (AUTO) 0.2 10^3/uL (0.0-0.7); EOSINOPHILS % (AUTO) 5.4 %; HCT - HEMATOCRIT 42.8 % (42.0-52.0); HGB - HEMOGLOBIN 14.2 g/dL (14.0-18.0); LYMPHOCYTES # (AUTO) 1.4 10^3/uL (1.5-3.5); LYMPHOCYTES % (AUTO) 36.9 %; MEAN CORPUSCULAR HEMOGLOBIN 32.3 pg (27.0-31.0); MEAN CORPUSCULAR HGB CONC 33.2 g/dL (32.0-36.0); MEAN CORPUSCULAR VOLUME 97.3 fL (80.0-94.0); MEAN PLATELET VOLUME 10.8 fL (7.4-11.4); MONOCYTES # (AUTO) 0.4 10^3/uL (0.0-1.0); MONOCYTES % (AUTO) 10.5 %; NEUTROPHILS # (AUTO) 1.8 10^3/uL (1.5-6.6); NEUTROPHILS % (AUTO) 45.9 %; PLT - PLATELET COUNT 91 10^3/uL (130-450); RED CELL DISTRIBUTION WIDTH 13.6 % (12.0-15.0); WHITE BLOOD COUNT 3.9 x10^3/uL (4.8-10.8)
[2023-08-23 10:27] LABS: ALBUMIN 3.7 g/dL (3.2-5.5); ALBUMIN/GLOBULIN RATIO 1.4 (1.0-2.2); BILIRUBIN,TOTAL 1.1 mg/dL (0.2-1.0); CALCIUM 9.9 mg/dL (8.5-10.3); CREATININE 1.6 mg/dL (0.6-1.3); TOTAL PROTEIN 6.3 g/dL (6.4-8.9)
--- NOTE | 2023-08-23 11:53 | XRAY Report ---
PROCEDURE: Chest 2V INDICATIONS: FATIGUE,PLEURAL EFFUSION TECHNIQUE: 2 views of the chest were acquired. COMPARISON: Chest radiograph 08/16/2023. FINDINGS: Surgical changes and devices: Median sternotomy wires with superior most wire fractured as before. A ortic valvoplasty. Lungs and pleura: No pneumothorax. Small bilateral pleural effusions with subjacent atelectasis. Mediastinum: Mediastinal contours appear normal. Heart size is normal. Bones and chest wall: No suspicious bony lesions. Overlying soft tissues appear unremarkable. IMPRESSION: Small bilateral pleural effusions with subjacent atelectasis. Reviewed by: Trixie Garcia MD on 08/23/2023 11:52 AM PST Approved by: Trixie Garcia MD on 08/23/2023 11:52 AM PST Station ID: [id number]
== END 2023-08-23 09:54 | disposition home or self-care (01) ==
LOC: LAB 09:53
PROVIDERS: ATTEND Registered Nurse
DX: J90 Pleural effusion, not elsewhere classified (principal); R35.0 Frequency of micturition; R53.83 Other fatigue; R41.3 Other amnesia; R30.0 Dysuria; E87.5 Hyperkalemia; J98.11 Atelectasis
CPT/HCPCS: 36415; 80053; 85025

== ENCOUNTER 2023-09-05 07:59 | Outpatient (CLI) | payer MEDICARE, OTHER | END 2023-09-05 08:00 | disposition home or self-care (01) | LOC: DI 07:59 | PROVIDERS: ATTEND Internal Medicine Cardiovascular Disease | DX: I35.1 Nonrheumatic aortic (valve) insufficiency (principal); I51.7 Cardiomegaly; Z95.2 Presence of prosthetic heart valve | CPT/HCPCS: 93307 ==

== ENCOUNTER 2023-09-06 11:03 | Outpatient (CLI) | payer MEDICARE, OTHER ==
[2023-09-06 11:26] LABS: CALCIUM 10.8 mg/dL (8.5-10.3); CREATININE 2.1 mg/dL (0.6-1.3)
== END 2023-09-06 11:04 | disposition home or self-care (01) ==
LOC: LAB 11:03
PROVIDERS: ATTEND Internal Medicine Cardiovascular Disease
DX: R06.02 Shortness of breath (principal)
CPT/HCPCS: 36415; 80048

== ENCOUNTER 2023-09-17 11:28 | Outpatient (CLI) | payer MEDICARE, OTHER ==
[2023-09-17 11:40] LABS: BASOPHILS % (AUTO) 0.7 %; EOSINOPHILS # (AUTO) 0.2 10^3/uL (0.0-0.7); EOSINOPHILS % (AUTO) 4.5 %; HGB - HEMOGLOBIN 14.9 g/dL (14.0-18.0); LYMPHOCYTES # (AUTO) 1.8 10^3/uL (1.5-3.5); LYMPHOCYTES % (AUTO) 42.2 %; MEAN CORPUSCULAR HGB CONC 32.4 g/dL (32.0-36.0); MEAN CORPUSCULAR VOLUME 98.7 fL (80.0-94.0); MEAN PLATELET VOLUME 11.4 fL (7.4-11.4); MONOCYTES # (AUTO) 0.4 10^3/uL (0.0-1.0); MONOCYTES % (AUTO) 10.5 %; NEUTROPHILS # (AUTO) 1.8 10^3/uL (1.5-6.6); NEUTROPHILS % (AUTO) 42.1 %; PLT - PLATELET COUNT 90 10^3/uL (130-450); RED BLOOD COUNT 4.66 10^6/uL (4.70-6.10); RED CELL DISTRIBUTION WIDTH 13.3 % (12.0-15.0); WHITE BLOOD COUNT 4.2 x10^3/uL (4.8-10.8)
[2023-09-17 11:45] LABS: INR 1.1 (0.8-1.2); PT - PROTHROMBIN TIME 12.3 secs (9.9-12.6)
[2023-09-17 11:52] LABS: CALCIUM 10.3 mg/dL (8.5-10.3); CREATININE 1.8 mg/dL (0.6-1.3); POTASSIUM 4.3 mmol/L (3.5-4.5)
== END 2023-09-17 11:29 | disposition home or self-care (01) ==
LOC: LAB 11:28
PROVIDERS: ATTEND Internal Medicine Cardiovascular Disease
DX: R06.02 Shortness of breath (principal); Z95.2 Presence of prosthetic heart valve; T82.0 Mechanical complication of heart valve prosthesis
CPT/HCPCS: 36415; 80048; 85025; 85610

== ENCOUNTER 2023-10-11 15:36 | Outpatient (CLI) | payer MEDICARE, OTHER ==
[2023-10-11 16:06] LABS: CREATININE 1.7 mg/dL (0.6-1.3); POTASSIUM 4.3 mmol/L (3.5-4.5)
== END 2023-10-11 15:37 | disposition home or self-care (01) ==
LOC: LAB 15:36
PROVIDERS: ATTEND Internal Medicine Cardiovascular Disease
DX: I50.20 Unspecified systolic (congestive) heart failure (principal)
CPT/HCPCS: 36415; 80048

== ENCOUNTER 2024-01-10 15:36 | Outpatient (CLI) | payer MEDICARE, OTHER ==
[2024-01-10 16:08] LABS: CALCIUM 10.6 mg/dL (8.5-10.3); CREATININE 1.6 mg/dL (0.6-1.3); POTASSIUM 4.5 mmol/L (3.5-4.5)
== END 2024-01-10 15:37 | disposition home or self-care (01) ==
LOC: LAB 15:36
PROVIDERS: ATTEND Internal Medicine Cardiovascular Disease
DX: I50.22 Chronic systolic (congestive) heart failure (principal)
CPT/HCPCS: 36415; 80048